=== PATIENT | male | born 1990 | race Caucasian/White ===

== ENCOUNTER 2018-02-18 18:28 | Emergency (ER) | payer OTHER ==
[2018-02-18 18:47] VITALS: BP 111/55; PULSE 86; TEMP 98.3; BMI 16.7
--- NOTE | 2018-02-18 18:50 | PDOC ---
Rapid Medical Evaluation Chief Complaint: Chest Pain Time Seen by Provider: 02/18/18 18:48 Medical Evaluation: Allergies Allergy/AdvReac Type Severity Reaction Status Date / Time No Known Allergies Allergy Verified 09/17/14 22:02 Vital Signs Temp Pulse Resp BP Pulse Ox 98.3 F 86 16 111/55 L 99 02/18/18 18:44 02/18/18 18:44 02/18/18 18:44 02/18/18 18:44 02/18/18 18:44 02/18/18 18:48 I have performed a brief in-person evaluation of this patient. The patient presents with a chief complaint of:4 days h/o cough, nasal congestion, chest tightness and tactile fever. pt report h/o multiple spontaneous pneumothorax Pertinent physical exam findings: heart RRR. lungs CTAB I have ordered the following: chest x-ray The patient will proceed to the ED for further evaluation Discharge Disposition - Diagnosis Cough - Referrals - Patient Instructions - Post Discharge Activity
--- NOTE | 2018-02-18 21:11 | PDOC ---
History of Present Illness - General Chief Complaint: Chest Pain Stated Complaint: CHEST PAIN Time Seen by Provider: 02/18/18 18:48 History Source: Patient Exam Limitations: No Limitations - History of Present Illness Initial Comments: 02/18/18 20:51 HISTORY OF PRESENT ILLNESS: 27-year-old male with past medical history of spontaneous pneumothorax status post surgical repair who presents emergency department for moist productive cough and is left sided chest pain with coughing. Patient states had similar symptoms when he had a spontaneous pneumothorax 2 years ago. Patient denies any shortness of breath or any difficulty breathing. Patient denies any weight loss. No recent travel or sick contacts. PAST MEDICAL HISTORY: see HPI SURGICAL HISTORY: Denies ALLERGIES: No known drug allergies REVIEW OF SYSTEMS General/Constitutional: Denies fever or chills. Denies weakness, weight change. HEENT: Denies change in vision. Denies ear pain or discharge. Denies sore throat. Cardiovascular: Left sided chest pain. Denies shortness of breath. Respiratory: Moist cough. Denies wheezing, or hemoptysis. Gastrointestinal: Denies nausea, vomiting, diarrhea or constipation. Denies rectal bleeding. Genitourinary: Denies dysuria, frequency, or change in urination. Musculoskeletal: Denies joint or muscle swelling or pain. Denies neck or back pain. Skin and breasts: Denies rash or easy bruising. Neurologic: Denies headache, vertigo, loss of consciousness, or loss of sensation. Psychiatric: Denies depression or anxiety. Endocrine: Denies increased thirst. Denies abnormal weight change. Hematologic/Lymphatic: Denies anemia, easy bleeding, or history of blood clots. Allergic/Immunologic: Denies hives or skin allergy. Denies latex allergy. PHYSICAL EXAM General Appearance: Well-appearing, appropriately dressed. No apparent distress , no intoxication. HEENT: EOMI, PERRLA, normal ENT inspection, normal voice, TMs normal, pharynx normal. No conjunctival pallor. No photophobia, scleral icterus. Neck: Supple. Trachea midline. No tenderness, rigidity, carotid bruit, stridor , lymphadenopathy, or thyromegaly. Respiratory/Chest: Lungs CTAB. No shortness of breath, chest tenderness, respiratory distress, accessory muscle use. No crackles, rales, rhonchi, stridor , wheezing, dullness Cardiovascular: RRR. S1, S2. No JVD, murmur, bradycardia, tachycardia. Past History - Past Medical History Allergies/Adverse Reactions: Allergies Allergy/AdvReac Type Severity Reaction Status Date / Time No Known Allergies Allergy Verified 09/17/14 22:02 Home Medications: Ambulatory Orders NK [No Known Home Medication] 09/17/14 COPD: No Other medical history: PNEMOTHORAX X 2 - Immunization History Immunization Up to Date: Yes - Suicide/Smoking/Psychosocial Hx Smoking History: Never smoked Have you smoked in the past 12 months: No Information on smoking cessation initiated: No Hx Alcohol Use: No Drug/Substance Use Hx: No Substance Use Type: None *Physical Exam - Vital Signs Last Vital Signs Temp Pulse Resp BP Pulse Ox 98.3 F 86 16 111/55 L 99 02/18/18 18:44 02/18/18 18:44 02/18/18 18:44 02/18/18 18:44 02/18/18 18:44 Moderate Sedation - Procedure Monitoring Vital Signs: Procedure Monitoring Vital Signs Temperature 98.3 F 02/18/18 18:44 Pulse Rate 86 02/18/18 18:44 Respiratory Rate 16 02/18/18 18:44 Blood Pressure 111/55 L 02/18/18 18:44 O2 Sat by Pulse Oximetry (%) 99 02/18/18 18:44 Medical Decision Making - Medical Decision Making 02/18/18 20:51 A/P: 27-year-old male history of spontaneous pneumothorax here for evaluation of cough and pleuritic chest pain TMs within normal limits bilaterally Oropharynx clear without erythema or exudates Respirations even and unlabored. Patient speaking full sentences Lungs clear to auscultation bilaterally Abdomen soft nontender nondistended Chest x-ray performed by our me as read by me: Angles clear. Cardiac silhouette is within normal limits. No pneumothorax is seen. No focal infiltrates or consolidations are present. Discharge home with symptomatic treatment of upper respiratory infection. *DC/Admit/Observation/Transfer Diagnosis at time of Disposition: Upper respiratory infection Qualifiers: URI type: unspecified viral URI Qualified Code(s): J06.9 - Acute upper respiratory infection, unspecified - Discharge Dispostion Disposition: HOME Condition at time of disposition: Stable Decision to Admit order: No - Referrals Referrals: Oscar Bishop MD [Primary Care Provider] - - Patient Instructions Printed Discharge Instructions: DI for Viral Upper Respiratory Infection -- Adult Additional Instructions: Rest, drink lots of fluids: Teas, water, soups, Pedialyte Saltwater gargles Steamy showers/seem to face break up mucus Avoid contact with others until fevers and cough resolved Lots of handwashing and good hygiene Continue [id number] medications for symptomatic relief Tylenol or Motrin for fever and pain Followup with private physician in one to 2 days as needed Return to emergency department for worsened symptoms, fevers, dehydration - Post Discharge Activity
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
== END 2018-02-18 20:55 | disposition home or self-care (01) ==
LOC: JERFT 18:28
DX: J06.9 Acute upper respiratory infection, unspecified (principal)
CPT/HCPCS: 71046-TC-FY; 99281-25

== ENCOUNTER 2018-08-02 00:27 | Emergency (ER) | payer OTHER ==
[2018-08-02 00:38] VITALS: BP 127/79; PULSE 55; TEMP 98.4; BMI 18.8
[2018-08-02] MEDS ORDERED: KETOROLAC TROMETHAMINE 30 MG/1 ML VIAL IM ONE (01:09)
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
[2018-08-02] MEDS ORDERED: KETOROLAC TROMETHAMINE 30 MG/1 ML VIAL ONE (01:18)
== END 2018-08-02 01:30 | disposition home or self-care (01) ==
LOC: FER 00:27
PROC: 0HQ1XZZ Repair Face Skin, External Approach (ICD-10-PCS; principal; 2018-08-02)
PROC: 3E0233Z Introduction of Anti-inflammatory into Muscle, Percutaneous Approach (ICD-10-PCS; 2018-08-02)
DX: S01.81XA Laceration without foreign body of other part of head, initial encounter (principal); V43.52XA Car driver injured in collision with other type car in traffic accident, initial encounter; Y93.89 Activity, other specified; Y92.410 Unspecified street and highway as the place of occurrence of the external cause
CPT/HCPCS: 99281-25

== ENCOUNTER 2023-05-04 10:33 | Emergency (ER) | payer OTHER ==
[2023-05-04 10:39] VITALS: BP 118/70; PULSE 77; RESP 18; TEMP 98.4; BMI 18.0
[2023-05-04] MEDS ORDERED: FLUORESCEIN NA 1 EA STRIP ONE (12:20)
[2023-05-04] MEDS: FLUORESCEIN NA 1 EA STRIP OS ONE (12:38)
== END 2023-05-04 13:29 | disposition home or self-care (01) ==
LOC: JERFT 10:33 → JER 10:33 → JERFT 13:29
DX: H57.89 Other specified disorders of eye and adnexa (principal); Y77.11 Contact lens associated with adverse incidents
CPT/HCPCS: 99283-25